=== PATIENT | female | born 1960 | race Two or more races ===

== ENCOUNTER 2018-04-17 12:12 | Emergency (ER) | payer MEDICAID, OTHER ==
[~2018-04-17] VITALS: Ht 175.3 cm; Wt 106.6 kg
[~2018-04-17 12:12] MED LIST: NKM; PERMETHRIN60 GM TOPIC; VALIUM5 MG ORAL
[2018-04-17 12:26] VITALS: BP 130/81
--- NOTE | 2018-04-17 12:39 | Emergency Room Report ---
History of Present Illness General Chief Complaint: Multiple Trauma/Fall Source: Patient Present Illness HPI 58-year-old female patient presents ER complaining of right elbow, wrist, hand pain status post trip and fall injury one day ago. Reports that she tripped and fell forward onto her right elbow and banged her wrist. Reports pain is worsened elbow compared to her wrist and hand. Reports she is right-hand dominant. Denies syncope or dizziness prior to fall. Denies hitting her head or loss consciousness. Reports she took ibuprofen yesterday for pain symptoms. Denies other acute symptoms. patient wrapped her elbow and arm in George wrap and held her arm in a sling, states pain is worse with movement.reports history of fracture right wrist "years ago". Allergies: Coded Allergies: No Known Allergies (Unverified , 11/22/14) Patient History Past Medical History: see triage record Reviewed Nursing Documentation: PMH: Agreed; PSxH: Agreed Nursing Documentation-PMH Past Medical History: No Stated History Review of Systems All Other Systems: negative except mentioned in HPI Physical Exam Vital Signs Date Time Temp Pulse Resp B/P (MAP) Pulse Ox O2 Delivery O2 Flow Rate FiO2 04/17/18 12:18 98.7 58 18 130/81 95 Room Air 98.8 Sp02 EP Interpretation: reviewed, normal General Appearance: well appearing, no apparent distress, alert, GCS 15, non- toxic Head: normocephalic, atraumatic Eyes: bilateral eye normal inspection, bilateral eye PERRL ENT: hearing grossly normal, normal pharynx, no angioedema, normal voice, uvula midline, moist mucus membranes Neck: full range of motion Respiratory: lungs clear, normal breath sounds, no rhonchi, no respiratory distress, no accessory muscle use, no wheezing, speaking full sentences Cardiovascular #1: regular rate, rhythm, no edema Cardiovascular #2: 2+ radial (R), 2+ radial (L) Musculoskeletal: back normal, digits/nails normal, gait/station normal, normal range of motion, swelling - right elbow, other - NVI, no snuffbox tenderness, no wrist swelling, no erythema or ecchymosis, no deformity, tender - right elbow , dorsum of fourth and fifth metacarpal Neurologic: alert, oriented x3, responsive, motor strength/tone normal, sensory intact Psychiatric: mood/affect normal Skin: no rash Lymphatic: no adenopathy Medical Decision Making PA Attestation Dr. Farmer is my supervising Physician whom patient management has been discussed with. Diagnostic Impression: Primary Impression: Radial head fracture ER Course Pt. presents to the ED c/o right wrist, hand, elbow pain status post fall one day ago. Ddx considered but are not limited to fracture, sprain, strain, contusion, dislocation. No erythema, no warmth to touch, no fever, nontoxic appearing, low suspicion for septic joint. Vital signs: are WNL, pt. is afebrile Ordered X-ray and pain medication. ER COURSE Provided with pain medication. An X-ray of the right elbow shows radial head fracture per The preliminary reading. An X-ray of the right hand shows no acute fracture per the preliminary reading. An X-ray of the right wrist shows no acute fracture per the preliminary reading. likely contusion causing pain symptoms at hand and wrist. long arm Splint was applied to the right arm and was checked afterwards by me showing good alignment and support with distal neurovascular functioning intact. Patient instructed on RICE method: rest, ice, compression, elevation. Patient instructed on rest, ice and heat. Patient instructed to be NWB Contact information for orthopedic urgent care provided, follow-up with urgent care if unable to followup with primary care provider and get referral to e business specialist. Followup with primary care provider. Discuss referral to ortho/pain management/ PT as needed. Discuss further imaging with MRI/CT as needed. DISCHARGE: -Rx provided for Tylenol #3 for pain symptoms. CURES reviewed. May take Tylenol following completion of Tylenol 3 prescription. At this time pt. is stable for d/c to home. Patient is resting comfortably, in no acute distress, nontoxic appearing, talking without difficulty. Will provide printed patient care instructions, and any necessary prescriptions. Patient instructed to follow with primary care provider in 3 - 5 days and to request further follow-up as needed. Care plan and follow up instructions have been discussed with the patient prior to discharge. Take medications as directed. Patient questions asked and answered. Patient reports understanding and agreement to treatment plan. ER precautions given, patient instructed to return to ER immediately for any new or worsening of symptoms. - Please note that this Emergency Department Report was dictated using [email or web address] technology software, occasionally this can lead to erroneous entry secondary to interpretation by the dictation equipment. Other X-Ray Diagnostic Results Other X-Ray Diagnostic Results #1: X-Ray ordered: right wrist # of Views/Limited Vs Complete: 3 View Indication: Pain EP Interpretation: Yes PA Xray: Interpretation reviewed, by supervising MD, and agrees with findings. Interpretation: no dislocation, no soft tissue swelling, no fractures, other - old healed fracture noted of distal radius Impression: No acute disease PA Scribe Text Mani Meier PA-C Other X-Ray Diagnostic Results #2: X-Ray ordered: right-hand # of Views/Limited Vs Complete: 3 View Indication: Pain EP Interpretation: Yes PA Xray: Interpretation reviewed, by supervising MD, and agrees with findings. Interpretation: no dislocation, no soft tissue swelling, no fractures Impression: No acute disease PA Scribe Text Mani Meier PA-C Other X-Ray Diagnostic Results #3: X-Ray ordered: right elbow # of Views/Limited Vs Complete: 3 View Indication: Pain EP Interpretation: Yes PA Xray: Interpretation reviewed, by supervising MD, and agrees with findings. Interpretation: no dislocation, no soft tissue swelling, other - radial head fracture Impression: Other - radial head fracture PA Scribe Text Mani Meier PA-C Last Vital Signs Date Time Temp Pulse Resp B/P (MAP) Pulse Ox O2 Delivery O2 Flow Rate FiO2 04/17/18 12:26 98.8 59 18 130/81 95 Room Air 98.8 Status: improved Disposition: HOME, SELF-CARE Condition: Stable Scripts Acetaminophen With Codeine (T#3) (TYLENOL #3 TAB*) Y Tab 1 TAB ORAL Q6HR PRN for For Pain, #10 TAB Prov: Serafin Meier 04/17/18 Patient Instructions: Radial Head Fracture, [id number] Additional Instructions: Patient instructed to follow up with primary care provider and discuss further referral to orthopedics/physical therapy/pain management as needed. If unable to followup with PCP, followup with orthopedic urgent care in 5-7 days , call to schedule appointment. Patient instructed on RICE method: rest, ice, compression, elevation. Patient instructed to NWB. Take medications as directed. May cause drowsiness, do not take prior drinking, driving, operating any machinery. Patient questions asked and answered. ER precautions given, patient instructed to return to ER immediately for any new or worsening of symptoms. [facility] [address] [facility] [id number] [facility], [id number] [email or web address] Serafin Meier Apr 17, 2018 12:39
[2018-04-17] MEDS ORDERED: ACETAMINOPHEN-1 EAC1 ORAL (13:59)
--- NOTE | 2018-04-17 14:01 | Diagnostic Imaging Report ---
Indication: Right elbow pain Findings: 3 views of the right elbow were obtained. There is an acute intra-articular fracture of the radial head extending into the radiocapitellar joint. There is no displacement. Joint effusion noted. IMPRESSION: Acute fracture of the radial head
--- NOTE | 2018-04-17 14:02 | Diagnostic Imaging Report ---
Indication: pain Right hand pain Findings: 3 views of the right hand were obtained. Normal bony mineralization and alignment are demonstrated. No acute fractures, erosions, or periosteal reaction are seen. Soft tissues are unremarkable. Impression: No acute findings.
--- NOTE | 2018-04-17 14:02 | Diagnostic Imaging Report ---
Indication: Right wrist pain Findings: 3 views of the right wrist were obtained. No acute fractures, malalignment, erosions or periostitis are identified. Soft tissues are unremarkable. Impression: No acute findings.
[2018-04-17 14:14] VITALS: BP 130/81
== END 2018-04-17 14:17 | disposition home or self-care (01) ==
LOC: EMR 12:54
DX: S52.121A Displaced fracture of head of right radius, initial encounter for closed fracture (principal); W01.0XXA Fall on same level from slipping, tripping and stumbling without subsequent striking against object, initial encounter; Y93.89 Activity, other specified; Y92.9 Unspecified place or not applicable
CPT/HCPCS: 99284